=== PATIENT | female | born 1960 | race Caucasian/White ===

== ENCOUNTER → 2016-09-25 | Outpatient (CLI) | payer BC ==
--- NOTE | 2016-09-25 08:38 | WOMENS IMAGING REPORT ---
EXAM DESCRIPTION: LEFT SCREENING MAMMO W/CAD COMPLETED DATE/TIME: 09/25/2016 7:58 am REASON FOR STUDY: SCREENING MAMMO Z12.32; RIGHT UPPER QUADRANT PAIN Z12.31 ENCNTR SCREEN MAMMOGRAM FOR MALIGNANT NEOPLASM OF FISH COMPARISON: Multiple since 2008 TECHNIQUE: Standard craniocaudal and mediolateral oblique views of the left breast recorded using di gital acquisition. Post right mastectomy in 1993 LIMITATIONS: None. FINDINGS: BREAST: Left Findings present which are benign by mammographic criteria. No suspicious masses, calcifications or a rchitectural distortion. Pertinent benign findings: Benign breast parenchymal calcifications Read with the assistance of CAD. .[facility] - R2 Cenova Version 1.3 .[facility] Imaging - R2 Cenova Version 1.3 .[facility] Imaging - R2 Cenova Version 2.4 .[facility] - R2 Cenova Version 2.4 .[facility] - R2 Finishing Machine Operator Automatic Version 9.2 Benign mammographic findings may include one or more of the following: Smooth masses, popcorn/rim/co arse calcifications, asymmetries, post-procedure changes, and lesions with long-standing stability. IMPRESSION: NORMAL MAMMOGRAM. BIRADS 2. BREAST DENSITY: b. There are scattered areas of fibroglandular density. BIRAD: 2 BENIGN FINDING(S) RECOMMENDATION: RECOMMENDATION: ROUTINE SCREENING. Please consider left breast screening tomosynthesis in September 2017 COMMENT: The patient has been notified of the results by letter per SA requirements. Additional no tification policies are in place for contacting patient with suspicious or incomplete findings. Quality ID #[id number]: The [employer] recommends an annual screening mammogram for women aged 40 years or over. This facility utilizes a reminder system to ensure that all patients receive reminder letters, and/or direct phone calls for appointments. This includes reminders for routine scr eening mammograms, diagnostic mammograms, or other Breast Imaging Interventions when appropriate. Th is patient will be placed in the appropriate reminder system. The [employer] (ACR) has developed recommendations for screening MRI of the breast s in certain patient populations, to be used in conjunction with mammography. Breast MRI surveillance may be appropriate for women with more than 20% lifetime risk of developing breast cancer as determi niles by genetic testing, significant family history of the disease, or history of mantle radiation for Hodgkins Disease. ACR Practice Guidelines 2008. TECHNICAL DOCUMENTATION: FINDING NUMBER: (1) ASSESSMENT: (1) JOB ID: [id number] [facility] [employer]- All Rights Reserved
--- NOTE | 2016-09-25 09:45 | WOMENS IMAGING REPORT ---
EXAM DESCRIPTION: U/S ABDOMEN LIMITED COMPLETED DATE/TIME: 09/25/2016 8:20 am REASON FOR STUDY: SCREENING MAMMO Z12.32; RIGHT UPPER QUADRANT PAIN Z12.31 ENCNTR SCREEN MAMMOGRAM FOR MALIGNANT NEOPLASM OF FISH COMPARISON: None. TECHNIQUE: Dynamic and static grayscale images acquired of the abdomen and recorded on PACS. Additio nal selected color Doppler and spectral images recorded. LIMITATIONS: None. FINDINGS: PANCREAS: No masses. Visualized pancreatic duct normal caliber. LIVER: No masses. Echotexture normal. LIVER VASCULATURE: Normal directional flow of the main portal vein and hepatic veins. GALLBLADDER: Multiple small polyps. No definite stones. No evidence cholecystitis. ULTRASOUND-DETECTED OVIEDO'S SIGN: Negative. INTRAHEPATIC DUCTS AND COMMON DUCT: CBD and intrahepatic ducts normal caliber. No filling defects. INFERIOR VENA CAVA: Normal flow. AORTA: No aneurysm. RIGHT KIDNEY: Normal size. Normal echogenicity. No solid or suspicious masses. No hydronephrosis. No calcifications. PERITONEAL AND RIGHT PLEURAL SPACE: No ascites or effusions. OTHER: No other significant findings. IMPRESSION: Multiple small gallbladder polyps. TECHNICAL DOCUMENTATION: JOB ID: [id number] [employer]- All Rights Reserved
== END ==
LOC: WI 07:17
PROVIDERS: ATTEND Advanced Practice Midwife
DX: Z12.31 Encounter for screening mammogram for malignant neoplasm of breast (principal); R10.11 Right upper quadrant pain
CPT/HCPCS: 76705; G0202

== ENCOUNTER 2016-11-07 10:48 | Day surgery (SDC) | payer BC ==
[2016-10-26 11:27] LABS: HEMATOCRIT 44.1 % (36.0-47.0); HEMOGLOBIN 15.2 g/dL (12.0-15.5); HGB HCT DIFFERENCE 1.5; MEAN CORPUSCULAR HGB CONC 34.5 g/dL (32.0-36.0); MEAN CORPUSCULAR VOLUME 87 fl (80-97); RED BLOOD COUNT 5.07 10^6/uL (3.72-5.28); RED CELL DISTRIBUTION WIDTH 13.4 % (11.5-14.0)
[2016-10-26 11:45] LABS: ALANINE AMINOTRANSFERASE 24 U/L (9-52); ALBUMIN 4.4 g/dL (3.5-5.0); ALKALINE PHOSPHATASE 65 U/L (38-126); ANION GAP 11 (5-19); ASPARTATE AMINO TRANSFERASE 19 U/L (14-36); BILIRUBIN,DIRECT 0.3 mg/dL (0.0-0.4); BILIRUBIN,TOTAL 0.5 mg/dL (0.2-1.3); BLOOD UREA NITROGEN 21 mg/dL (7-20); CALCIUM 9.7 mg/dL (8.4-10.2); CARBON DIOXIDE 25 mmol/L (22-30); CHLORIDE 106 mmol/L (98-107); CREATININE RESULT 0.79 mg/dL (0.52-1.25); GLUCOSE 143 mg/dL (75-110); POTASSIUM 4.4 mmol/L (3.6-5.0); SODIUM 141.9 mmol/L (137-145); TOTAL PROTEIN 6.7 g/dL (6.3-8.2)
--- NOTE | 2016-10-26 20:14 | EKG REPORT ---
SEVERITY:- ABNORMAL ECG - SINUS RHYTHM FIRST DEGREE AV BLOCK : Confirmed by: Shelly Larios 26-Oct-2016 20:14:05
[~2016-11-07 10:48] MED LIST: ACETAMINOPHEN 325 MG TABLET PO PRN; BUPIVACAINE HCL 0.25 % INJ/PF (2.5 MG/1 ML) 30 ML VIAL ONE; CEFAZOLIN 1 GM/D5W RTU 1 GM/50 ML RTUPB IV PRN; DEXAMETHASONE SOD PHOSPHATE INJ 4 MG/1 ML VIAL ONE; GLYCOPYRROLATE INJ 0.4 MG/2 ML VIAL ONE; KETOROLAC TROMETHAMINE 60 MG/2 ML SDV ONE; LACTATED RINGERS 1000 ML IV PRN; LIDOCAINE 2% INJ-PF (20 MG/ML) 10 ML AMPUL ONE; NEOSTIGMINE METHYLSULFATE 10 MG/10 ML VIAL ONE; ONDANSETRON HCL INJ/PF 4 MG/2 ML SDV ONE; ROCURONIUM BROMIDE INJ 50 MG/5 ML VIAL IV ONE; SUCCINYLCHOLINE CHLORIDE INJ 200 MG/10 ML VIAL ONE
[2016-11-07] MEDS ORDERED: MIDAZOLAM 2 MG/2 ML INJ ONE ×2 (11:55→13:30)
[2016-11-07] MEDS ORDERED: ALBUTEROL SULFATE 0.083% NEB 2.5 MG/3 ML AMPUL NEB ONE (11:59)
[2016-11-07] MEDS ORDERED: RINGERS SOLUTION,LACTATED 1,000 ML IV ONE (12:15)
[2016-11-07] MEDS ORDERED: FENTANYL CITRATE INJ/PF 100 MCG/2 ML AMPUL ONE (13:29)
[2016-11-07] MEDS ORDERED: ACETAMINOPHEN 100 ML IV ONE (13:30)
[2016-11-07] MEDS ORDERED: PROPOFOL INJ 200 MG/20 ML VIAL IV ONE (13:30)
[2016-11-07] MEDS ORDERED: DIPHENHYDRAMINE HCL 50 MG/ML VIAL IV PRN (14:06)
[2016-11-07] MEDS ORDERED: MEPERIDINE HCL/PF INJ 25 MG/1 ML DISP.SYRIN IV PRN (14:06)
[2016-11-07] MEDS ORDERED: FENTANYL CITRATE INJ/PF 100 MCG/2 ML AMPUL IV PRN ×3 (14:06)
[2016-11-07] MEDS ORDERED: PROMETHAZINE HCL INJ 25 MG/1 ML VIAL IV PRN ×2 (14:06)
--- NOTE | 2016-11-07 15:33 | Operative Report ---
Operative Report DATE OF SURGERY: 11/07/16 PREOPERATIVE DIAGNOSIS: Umbilical hernia, biliary colic. POSTOPERATIVE DIAGNOSIS: Umbilical hernia, biliary colic. OPERATION: Laparoscopic cholecystectomy, open umbilical hernia repair SURGEON: BRYAN BECKWITH ANESTHESIA: GA TISSUE REMOVED OR ALTERED: None COMPLICATIONS: None ESTIMATED BLOOD LOSS: Minimal INTRAOPERATIVE FINDINGS: Normal-appearing bilateral ovaries. 1.5 cm umbilical hernia fascial defect. PROCEDURE: Informed consent was obtained. Patient was brought to the operating room placed operating table in supine position. After satisfactory induction of general anesthesia, patient's abdomen was prepped and draped in usual sterile fashion. A semicircular infraumbilical incision was made dissection revealed a umbilical hernia measuring about 1.5 cm in size. The bellybutton was dissected away from the hernia sac and the hernia sac was opened. Jay trocar was inserted via this defect. Pneumoperitoneum produced good patient toleration. 5 mm trocar was placed in the subxiphoid location.Two 5 mm trochars were placed in the right subcostal location. Laparoscopic view of bilateral ovaries were obtained and both of the ovaries appear normal. The liver appeared normal. The gallbladder appeared normal from the outside. The gallbladder was grasped and retracted cephalad over the dome of the liver. The infundibulum of the gallbladder was grasped retracted laterally and inferiorly thus exposing calot' s triangle. During the dissection there was bleeding of a small vessel at Calot's triangle. This vessel was isolated and clipped with good hemostasis. A fourth 5 mm trocar was placed during this portion of the procedure at the mid upper abdomen for the exposure. The cystic duct gallbladder junction was clearly identified and the cystic duct was clipped and divided. Cystic artery was likewise taken. The gallbladder was taken off the gallbladder bed using the hook electrocautery technique. The gallbladder was removed with an Endobag through the Jay trocar site fascial defect. Operative field was irrigated and irrigant aspirated out. Irrigation fluid was perfectly clear at the end of the case. Hemostasis appeared excellent. All trochars were removed under the direct vision a laparoscope to ensure hemostasis. The umbilical hernia was repaired using interrupted Ethibond sutures oriented in the transverse direction. The belly button was tacked back to the underlying fascia using interrupted Vicryl suture. All skin incisions were closed with subcuticular interrupted Monocryl sutures. Marcaine was injected at the port sites. Patient tolerated procedure well no apparent complications and was taken to the recovery area in stable condition.
[2016-11-07] MEDS ORDERED: RINGERS SOLUTION,LACTATED 1,000 ML IV PRN (15:35)
[2016-11-07] MEDS ORDERED: ONDANSETRON HCL INJ/PF 4 MG/2 ML SDV IV PRN (15:35)
[2016-11-07] MEDS ORDERED: OXYCODONE-ACETAMINOPHEN 5-325 MG TABLET PO PRN (15:35)
--- NOTE | 2016-11-07 15:35 | PDOC DISCHARGE SUMMARY ---
Discharge Summary (SDC) - Discharge Final Diagnosis: Umbilical hernia. Biliary colic. Date of Surgery: 11/07/16 Discharge Date: 11/07/16 Condition: Good Treatment or Instructions: Underwent umbilical hernia repair and laparoscopic cholecystectomy. May discharge patient home when met discharge criteria. Stay active but avoid strenuous activity. May shower tomorrow night. Keep Steri-Strips on. Follow- up with me in 2 weeks. Prescriptions: Oxycodone HCl/Acetaminophen [Percocet 5-325 mg Tablet] 1 tab PO ASDIR PRN #25 tablet PRN Reason: Discharge Diet: As Tolerated Discharge Activity: Activity As Tolerated - Stay active but avoid strenuous activity. Report the Following to Your Physician Immediately: Yellow Skin, Fever over 101 Degrees, Unusual Bleeding, Redness, Drainage-Foul Smelling
[2016-11-07 18:46] VITALS: BP 151/86
== END 2016-11-07 18:20 | disposition home or self-care (01) ==
LOC: OROUT 10:48
PROVIDERS: ATTEND Surgery
PROC: 0WQF0ZZ Repair Abdominal Wall, Open Approach (ICD-10-PCS; 2016-11-07)
PROC: 0FT44ZZ Resection of Gallbladder, Percutaneous Endoscopic Approach (ICD-10-PCS; principal; 2016-11-07 13:00)
DX: K80.10 Calculus of gallbladder with chronic cholecystitis without obstruction (principal); K42.9 Umbilical hernia without obstruction or gangrene; F17.210 Nicotine dependence, cigarettes, uncomplicated; Z85.3 Personal history of malignant neoplasm of breast
CPT/HCPCS: 93005; 36415; 85027; 80053; 88304 ×2; 93010; 47562; 49585; J2250; J0690; J3490 ×2; J1100; J1885; J3010; J0330; J2405; J2704; J0131; 790

== ENCOUNTER → 2017-11-21 | Outpatient (CLI) | payer BC ==
--- NOTE | 2017-11-21 17:38 | WOMENS IMAGING REPORT ---
EXAM DESCRIPTION: 3D SCREENING MAMMO LEFT COMPLETED DATE/TIME: 11/21/2017 11:09 am REASON FOR STUDY: SCREENING MAMMO Z12.31 ENCNTR SCREEN MAMMOGRAM FOR MALIGNANT NEOPLASM OF FISH COMPARISON: Multiple since 2008 TECHNIQUE: Standard craniocaudal and mediolateral oblique views of the breast recorded using digital acquisition and breast tomosynthesis. LIMITATIONS: None. FINDINGS: BREAST: Left No masses, calcifications or architectural distortion. No areas of suspicion. Read with the assistance of CAD. .[facility] - R2 Cenova Version 1.3 .[facility] Imaging - R2 Cenova Version 1.3 .[facility] Imaging - R2 Cenova Version 2.4 .[facility] - R2 Cenova Version 2.4 .[facility] - R2 Distilling Department Supervisor Version 9.2 IMPRESSION: NORMAL MAMMOGRAM. BIRADS 1. BREAST DENSITY: b. There are scattered areas of fibroglandular density. BIRAD: 1 Negative RECOMMENDATION: RECOMMENDATION: ROUTINE SCREENING. Please continue left breast screening tomosynthesis in November 2018 COMMENT: The patient has been notified of the results by letter per SA requirements. Additional no tification policies are in place for contacting patient with suspicious or incomplete findings. Quality ID #[id number]: The [employer] recommends an annual screening mammogram for women aged 40 years or over. This facility utilizes a reminder system to ensure that all patients receive reminder letters, and/or direct phone calls for appointments. This includes reminders for routine scr eening mammograms, diagnostic mammograms, or other Breast Imaging Interventions when appropriate. Th is patient will be placed in the appropriate reminder system. The [employer] (ACR) has developed recommendations for screening MRI of the breast s in certain patient populations, to be used in conjunction with mammography. Breast MRI surveillance may be appropriate for women with more than 20% lifetime risk of developing breast cancer as determi niles by genetic testing, significant family history of the disease, or history of mantle radiation for Hodgkins Disease. ACR Practice Guidelines 2008. DBT Technology DBT is a type of tomographic mammography. With conventional mammography, overlapping breast tissue ma y make lesions difficult to detect, even with good compression. DBT uses an x-ray tube that rotates a round the breast, taking images at different angles. These images are then combined to create thin sl ices of the breast that the radiologist can view as a 3D reconstruction. The enymotion unit can perform full-field digital mammograms (2D imaging); or DBT (3D imaging); or both, in a combination mode that quickly performs both the mammogram and the tomosynthesis scan while the breast is still compressed. PQRS 6045F: Fluoroscopic imaging is not utilized for breast tomosynthesis. TECHNICAL DOCUMENTATION: FINDING NUMBER: (1) ASSESSMENT: (1) JOB ID: [id number] [employer]- All Rights Reserved Reading location - IP/workstation name: [email or web address]
== END ==
LOC: WI 10:11
PROVIDERS: ATTEND Advanced Practice Midwife
DX: Z12.31 Encounter for screening mammogram for malignant neoplasm of breast (principal); Z85.3 Personal history of malignant neoplasm of breast; Z80.3 Family history of malignant neoplasm of breast

== ENCOUNTER → 2018-12-05 | Outpatient (CLI) | payer BC ==
--- NOTE | 2018-12-05 09:43 | WOMENS IMAGING REPORT ---
EXAM DESCRIPTION: LEFT SCREENING MAMMO W/CAD COMPLETED DATE/TIME: 12/05/2018 8:14 am REASON FOR STUDY: Z12.31 SCREENING MAMMO Z12.31 ENCNTR SCREEN MAMMOGRAM FOR MALIGNANT NEOPLASM OF B RE Z85.3 PERSONAL HISTORY OF MALIGNANT NEOPLASM OF BREAST COMPARISON: [id number] EXAM PARAMETERS: Standard craniocaudal and mediolateral oblique views of the breast recorded using d igital acquisition. Read with the assistance of CAD. .[facility] - [employer] Version 9.2 LIMITATIONS: None. FINDINGS: BREAST LATERALITY: left No suspicious masses, suspicious calcifications or architectural distortion. No areas of concern. IMPRESSION: NORMAL MAMMOGRAM. BIRADS 1. BREAST DENSITY: b. There are scattered areas of fibroglandular density. BIRAD: ASSESSMENT: 1 NEGATIVE RECOMMENDATION: RECOMMENDATION: ROUTINE SCREENING. COMMENT: The patient has been notified of the results by letter per SA requirements. Additional no tification policies are in place for contacting patient with suspicious or incomplete findings. Quality ID #[id number]: [employer] recommends an annual screening mammogram for women aged 40 years or over. This facility utilizes a reminder system to ensure that all patients receive reminder letters, and/or direct phone calls for appointments. This includes reminders for routine scr eening mammograms, diagnostic mammograms, or other Breast Imaging Interventions when appropriate. Th is patient will be placed in the appropriate reminder system. TECHNICAL DOCUMENTATION: FINDING NUMBER: (1) ASSESSMENT: (1) JOB ID: [id number] [employer]- All Rights Reserved Reading location - IP/workstation name: [email or web address]
== END ==
LOC: WI 07:25
PROVIDERS: ATTEND Advanced Practice Midwife
DX: Z12.31 Encounter for screening mammogram for malignant neoplasm of breast (principal); Z85.3 Personal history of malignant neoplasm of breast; Z90.11 Acquired absence of right breast and nipple

== ENCOUNTER → 2019-12-24 | Outpatient (CLI) | payer BC ==
--- NOTE | 2019-12-24 18:00 | EKG REPORT ---
SEVERITY:- ABNORMAL ECG - SINUS RHYTHM NONSPECIFIC T ABNORMALITIES, ANT-LAT LEADS : Confirmed by: Shelly Larios 24-Dec-2019 18:00:30
--- OUTSIDE RECORDS SUMMARY | 2019-12-25 18:25 | XMS REPORT ---
:1960 [facility] [address] [address] Care Team Providers Name Role Phone Noelle ZIEGLER Attending Clinician Unavailable Grisel NOBLE Attending Clinician Unavailable Ada SELLERS Attending Clinician Unavailable Sharon ANDRADE Attending Clinician Unavailable Neo SANTOS Attending Clinician Unavailable Allergies, Adverse Reactions, Alerts This patient has no known allergies or adverse reactions. Medications Ordered Filled Start Stop Current Ordering Indication Dosage Frequency Signature Comments Components Medication Medication Date Date Medication? Clinician (SIG) Name Name Take 1 2019- 2020- No 1 BID Take 1 Capsule 0-16 10-21 Capsule orally 00:00: 00:00 orally twice per 00 :00 twice per day for 5 day for 5 days days Take 1 2020-1 2020- No 1 BID Take 1 Capsule 0-16 10-21 Capsule orally 00:00: 00:00 orally twice per 00 :00 twice per day for 5 day for 5 days days Take 1 2020-1 2020- No 1 QD Take 1 Tablet 0-16 10-18 Tablet orally once 00:00: 00:00 orally per day for 00 :00 once per 2 days day for 2 days Take 1 2020-1 2020- No 1 QD Take 1 Tablet 0-16 10-18 Tablet orally once 00:00: 00:00 orally per day for 00 :00 once per 2 days day for 2 days 1 Capsule 2020-0 2020- No 1 BID 1 Capsule orally 3- 03-13 orally twice per 00:00: 00:00 twice per Day for 10 00 :00 Day for 10 Days Days 1 Capsule 2020-0 2020- No 1 TID 1 Capsule orally up 3-04 14-13 orally up to 2 00:00: 00:00 to 2 capsules 3 00 :00 capsules 3 times per times per Day for 10 Day for 10 Days Days 1 Capsule 2020-0 2020- No 1 BID 1 Capsule orally 3-03 03-13 orally twice per 00:00: 00:00 twice per Day for 10 00 :00 Day for 10 Days Days Take 10 2019- No 10 Take 10 Milliliters 3-03 03-08 Milliliter orally once 00:00: 00:00 s orally per Day at 00 :00 once per night, will Day at cause night, drowsiness will cause for 5 Days drowsiness for 5 Days Take 10 2019- No 10 QD Take 10 Milliliters 3-03 03-08 Milliliter orally once 00:00: 00:00 s orally per Day at 00 :00 once per night, will Day at cause night, drowsiness will cause for 5 Days drowsiness for 5 Days 1 Capsule, 2018-02- No 1 BID 1 Capsule, 2 times per 0-04 -11 2 times Day for 7 00:00: 00:00 per Day Days 00 :00 for 7 Days 1 Tablet, 1 2018-02- No 1 QD 1 Tablet, time per 0- 10-06 1 time per Day for 2 00:00: 00:00 Day for 2 Days Repeat 00 :00 Days in 5 days Repeat in 5 days 1 Tablet, 2 2017-02- No 1 BID 1 Tablet, times per 2-26 01-05 2 times Day for 10 21:09: 00:00 per Day Days for 31 :00 for 10 urinary Days for tract urinary infection tract infection 1 Tablet, 2 2017-02- No 1 BID 1 Tablet, times per 2-20 12-23 2 times Day for 3 00:00: 00:00 per Day Days 00 :00 for 3 Days 1 Tablet, 2 2017-02- No 1 BID 1 Tablet, times per 1-12 11-22 2 times Day for 10 08:51: 00:00 per Day Days 07 :00 for 10 Days 1 Tablet, 2 2010- No 1 BID 1 Tablet, times per 2- 02-12 2 times Day for 10 00:00: 00:00 per Day Days FOR 00 :00 for 10 BLADDER Days FOR INFECTION BLADDER INFECTION for 10 2010- No for 10 Days USE 2-02 02-12 Days USE DIRECTED 00:00: 00:00 FOR YEAST 00 :00 DIRECTED INFECTION FOR YEAST INFECTION 1 Tablet, 1 2009- No 1 QD 1 Tablet, time per 6- 07-04 1 time per Day for 30 00:00: 00:00 Day for 30 Days for 00 :00 Days for weight loss weight loss 1 Tablet, 1 1 QD 1 Tablet, time per 06-15 1 time per Day for 1 00:00: 00:00 Day for 1 Month for 00 :00 Month for weight loss weight loss 1 Tablet, 1 2009- No 1 QD 1 Tablet, time per 06-15 1 time per Day for 1 00:00: 00:00 Day for 1 Month for 00 :00 Month for weight loss weight loss 2 Tablets, Yes 2 QD 2 Tablets, 1 time per 1 time per Day otc Day otc Problems Condition Condition Condition Status Onset Resolution Last Treatin g Comments Name Details Category Date Date Treatment Clinician Date Glucosuria Glucosuria Disease active ([id number] ([id number] 2) 2) Body mass Body mass Disease active index index 30.0-30.9 30.0-30.9 adult adult ([id number] ([id number] 000) 000) Procedures Procedure Date / Time Performed Performing Clinician Devic e Non-smoker 2019-10-09 00:00:00 Tobacco usage screening ([id number]) 2019-10-09 00:00:00 Handling and/or conveyance of 2018-11-15 00:00:00 specimen for transfer from the office to a laboratory BMI is documented above normal 2018-01-31 00:00:00 parameters and a follow-up plan is documented Results Test Description Test Time Test Comments Text Results Atomic Results Result Comments Urine Dipstick w/o Micro (Automated)"/> 2019-11-28 00:00:00 Test Item Value Reference Range Comments Glucose (test code = 5792-7) negative Neg - 2+ Bilirubin (test code = 5770.3) negative Neg - 3+ Ketone (test code = 5797-6) negative Neg - Large SP/G (test code = 2965-2) >=1.030 1.000-1.030 Blood (test code = 20516-7) moderate Neg - 3+ pH (test code = 5803-2) 6.0 5.0-8.5 Protein (test code = 5804-0) negative Neg - 4+ Urobilinogen (test code = 91719-6) 0.2 0.2-8 Nitrite (test code = 5802-4) negative Negative or Positiv e Leukocytes (test code = 5799-2) trace Neg - 3+ Turbidity (test code = 22430-0) clear Color (test code = 87769-3) yellow Urine Culture, Routine"/>2019-11-28 00:00:00 Test Item Value Reference Range Comments Result 1 (test code = 630-4) Comment INFLUENZA, A OR B, EACH"/>2019-04-17 00:00:00 Test Item Value Reference Range Comments INFLUENZA, A OR B, EACH (test code = INFLUENZA, A negative NEGATIVE OR B, EACH) Urine Dipstick w/o Micro (Automated)"/>2018-11-15 00:00:00 Test Item Value Reference Range Comments Glucose (test code = 5792-7) 250 mg/dL Neg - 2+ Bilirubin (test code = 5770.3) small Neg - 3+ Ketone (test code = 5797-6) negative Neg - Large SP/G (test code = 2965-2) >=1.030 1.000-1.030 Blood (test code = 86901-8) trace-lysed Neg - 3+ pH (test code = 5803-2) 5.0 5.0-8.5 Protein (test code = 5804-0) 100 Neg - 4+ Urobilinogen (test code = 16540-6) 4.0 0.2-8 Nitrite (test code = 5802-4) positive Negative or Positiv e Leukocytes (test code = 5799-2) large Neg - 3+ Turbidity (test code = 12222-1) cloudy Color (test code = 91251-2) dk.orange Glucose"/>2018-11-15 00:00:00 Test Item Value Reference Range Comments Glucose blood test (test code = 62070-9) 132 60-115 Urine Culture, Routine"/>2018-11-15 00:00:00 Test Item Value Reference Range Comments Result 1 (test code = 630-4) Comment Hgb A1c with eAG Estimation"/>2018-03-27 00:00:00 Test Item Value Reference Range Comments Hemoglobin A1c (test code = 4548-4) 6.2 % 4.8-5.6 Estim. Avg Glu (eAG) (test code = 77353-0) 131 mg/dL Urine Dipstick w/o Micro (Automated)"/>2018-01-31 00:00:00 Test Item Value Reference Range Comments Glucose (test code = 5792-7) negative Neg - 2+ Bilirubin (test code = 5770.3) negative Neg - 3+ Ketone (test code = 5797-6) negative Neg - Large SP/G (test code = 2965-2) 1.010 1.000-1.030 Blood (test code = 73771-3) trace-intact Neg - 3+ pH (test code = 5803-2) 6.5 5.0-8.5 Protein (test code = 5804-0) 30 Neg - 4+ Urobilinogen (test code = 52772-7) 0.2 0.2-8 Nitrite (test code = 5802-4) positive Negative or Positiv e Leukocytes (test code = 5799-2) moderate Neg - 3+ Turbidity (test code = 16269-6) cloudy Color (test code = 05190-8) lt yellow Hemoglobin A1c"/>2017-12-24 00:00:00 Test Item Value Reference Range Comments Hemoglobin A1c (test code = 4548-4) 6.2 % 4.8-5.6 In-House: Urinalysis w/o microscopy"/>2010-03-16 00:00:00 Test Item Value Reference Range Comments Glucose (test code = Glucose) neg Bilirubin (test code = Bilirubin) neg Ketones (test code = Ketones) neg SP/G (test code = SP/G) 1.010 1.000-1.030 Blood (test code = Blood) large pH (test code = pH) 6.0 5.0-8.5 Protein (test code = Protein) 30 Urobilinogen (test code = Urobilinogen) 1.0 0.2-8 Nitrates (test code = Nitrates) neg Leukocytes (test code = Leukocytes) mod Turbidity (test code = Turbidity) clr Color (test code = Color) lt. yellow UA/M w/rflx Culture, Routine"/>2010-03-16 00:00:00 Test Item Value Reference Range Comments Specific [place] (test code = Specific [place]) 1.014 1.005-1.030 pH (test code = pH) 6.0 5.0-7.5 Urine-Color (test code = Urine-Color) Yellow Yellow Appearance (test code = Appearance) Cloudy Clear WBC Esterase (test code = WBC Esterase) 2+ Negative Protein (test code = Protein) Negative Negative/Trace Glucose (test code = Glucose) Negative Negative Glucose Reflex (test code = Glucose Reflex) Ketones (test code = Ketones) Negative Negative Occult Blood (test code = Occult Blood) 3+ Negative Bilirubin (test code = Bilirubin) Negative Negative Urobilinogen,Semi-Qn (test code = 1.0 mg/dL 0.0-1.9 Urobilinogen,Semi-Qn) Nitrite, Urine (test code = Nitrite, Urine) Negative Nega tive Microscopic Examination (test code = Microscopic See below: Examination) Urinalysis Reflex (test code = Urinalysis Reflex) Comment Microscopic Examination"/>2010-03-16 00:00:00 Test Item Value Reference Range Comments WBC (test code = WBC) 11-30 0-5 RBC (test code = RBC) 11-30 0-3 Epithelial Cells (non renal) (test code = Epithelial >10 0-10 Cells (non renal)) Epithelial Cells (renal) (test code = Epithelial Cells (renal)) Casts (test code = Casts) Cast Type (test code = Cast Type) Crystals (test code = Crystals) Crystal Type (test code = Crystal Type) Mucus Threads (test code = Mucus Threads) Present Not Es tab. Bacteria (test code = Bacteria) Few None seen/Few Yeast (test code = Yeast) Trichomonas (test code = Trichomonas) Comment (test code = Comment) Urine Culture, Routine"/>2010-03-16 00:00:00 Test Item Value Reference Range Comments Urine Culture, Routine (test code = Urine Final report Culture, Routine) Result 1 (test code = Result 1) Comment Assessments Condition Name Status Diagnosis Date Treating Clinici an Sinusitis ([id number]) Unknown 2009-05-26 15:03:00 Blood glucose abnormal ([id number]) Unknown 2009-05-26 15:03:00 Acute lower urinary tract infection Unknown 2009-05-26 1 5:03:00 ([id number]) Prediabetes (NBO3240461) Unknown 2009-05-26 15:03:00 UTI - Urinary tract infection Unknown 2009-05-26 15:03:0 0 ([id number]) Glucosuria ([id number]) Unknown 2009-05-26 15:03:00 Allergic rhinitis (CFY80701070) Unknown 2009-05-26 15:03 :00 Body mass index 30.0-30.9 adult Unknown 2009-05-26 15:03 :00 ([id number]) Glucosuria ([id number]) Unknown 2009-05-26 15:03:00 Fever ([id number]) Unknown 2009-05-26 15:03:00 TOBACCO ABUSE COUNSELING Unknown 2009-05-26 15:03:00 ([id number]) Cough ([id number]) Unknown 2009-05-26 15:03:00 TOBACCO ABUSE COUNSELING Unknown 2009-05-26 15:03:00 ([id number]) Disease caused by 2019 novel Unknown 2009-05-26 15:03:00 coronavirus ([id number]) Urinary frequency ([id number]) Unknown 2009-05-26 15:0 3:00 Dysuria ([id number]) Unknown 2009-05-26 15:03:00 Hematuria ([id number]) Unknown 2009-05-26 15:03:00 Urinary tract infection ([id number]) Unknown 2009-05-26 15:03:00 Dietary surveillance and counseling Unknown 2009-05-26 1 5:03:00 ([id number]) Urinary frequency ([id number]) Unknown 2009-05-26 15:0 3:00 Elevated blood pressure reading Unknown 2009-05-26 15:03 :00 without diagnosis of hypertension ([id number]) Dysuria ([id number]) Unknown 2009-05-26 15:03:00 Urinary tract infection ([id number]) Unknown 2009-05-26 15:03:00 UNSPECIFIED ABNORMAL FINDINGS IN URINE Unknown 2009-05-13 4 15:03:00 ([id number]) Smoker ([id number]) Unknown 2009-05-26 15:03:00 Encounters Start End Encounter Admission Attending Care Care Encounter Date/Time Date/Time Type Type Clinicians Facility Department ID 2019-11-28 2019-12-03 Office/Outp Noelle [facility] [id number] 16:20:00 21:48:12 t [facility] 2019-11-28 2019-11-28 Office/Outp Noelle [facility] [id number] 16:20:00 16:34:56 t [facility] Visit,[facility] 2019-10-09 2019-10-10 Office/Outp Noelle [facility] [id number] 09:10:00 13:02:13 t [facility]aily [facility] Visit,[facility] 2019-04-15 2019-04-17 Office/Outp Grisel [facility] [id number] 15:30:00 11:25:16 t Givens Medical Visit,Priyank [facility] III 2019-04-17 2019-04-17 Office/Outp Grisel [facility] [id number] 10:01:00 11:22:07 t Givens Medical Visit,Priyank [facility] III 2018-12-06 2018-12-06 Office/Outp Grisel [facility] [id number] 15:20:00 14:51:41 t Givens Medical Visit,Priyank [facility]uez [facility] III 2018-11-15 2018-11-15 Office/Outp Grisel [facility] [id number] 15:40:00 19:15:48 t Givens Medical Visit,Priyank Rod[facility]guez [facility] III 2018-03-27 2018-03-27 Office/Outp Ada [facility] [id number] 15:20:00 16:58:37 t Celena Medical Visit,Priyank Rod[facility]guez [facility] III 2018-01-31 2018-01-31 Office/Outp Sharon [facility] [id number] 15:00:00 15:13:23 t Tae Medical Visit,AnneL [facility] III 2017-12-24 2017-12-24 Office/Outp Ada [facility] [id number] 08:51:00 09:52:25 t Celena Medical Visit,Priyank Rod[facility]guez [facility] III 2010-03-16 2010-03-16 Office/Outp Neo [facility] [id number] 11:37:00 11:59:38 t Worriax Medical Visit,AnneL [facility] III 2009-07-27 Office/Outp Neo [facility] [id number] 09:37:59 08:15:56 t Worriax [facility] Visit,[facility] III 2009-06-15 2009-06-15 Office/Outp Neo [facility] [id number] 11:09:00 11:26:19 t Worriax Medical Visit,AnneL [facility] III 2009-05-26 2009-06-03 Office/Outp Neo [facility] [id number] 11:03:00 00:29:59 t Worriax Medical Visit,NewPriyank [facility] III 2009-05-28 2009-05-28 [id number] [facility] [place] [id number] 09:27:00 09:30:19 Health Center Payers Payer Name Policy Type Policy Number Effective Date Expiration D ate BCBS [place](BSNCA) [51] LD Social History Social Habit Start Date Stop Date Comments Alcohol use Caffeine use Exercise Fat Intake Salt Intake Sex Assigned At 2019-12-04 00:00:00 2019-12-04 00:00:00 Smoking Status Start Date Stop Date Smoking status: Current every day smoker ([id number]) Vital Signs Vital Name Observation Time Observation Value Comments Height 2019-11-28 16:02:00 162.6 cm Weight 2019-11-28 16:02:00 79.9 kg BMI 2019-11-28 16:02:00 30.25 kg/m2 Systolic blood pressure 2019-11-28 16:02:00 128 mm[Hg] Diastolic blood pressure 2019-11-28 16:02:00 68 mm[Hg] Body temperature 2019-11-28 16:02:00 36.6 Yaneth Respiratory rate 2019-11-28 16:02:00 18 /min Heart rate 2019-11-28 16:02:00 70 /min Oxygen saturation in Capillary blood 2019-11-28 16:02:00 96 % by Oximetry Oxygen saturation in Capillary blood 2019-10-09 09:11:00 99 % by Oximetry Height 2019-10-09 09:11:00 162.6 cm Weight 2019-10-09 09:11:00 81.3 kg BMI 2019-10-09 09:11:00 30.78 kg/m2 Systolic blood pressure 2019-10-09 09:11:00 155 mm[Hg] Diastolic blood pressure 2019-10-09 09:11:00 79 mm[Hg] Body temperature 2019-10-09 09:11:00 36.3 Yaneth Respiratory rate 2019-10-09 09:11:00 18 /min Heart rate 2019-10-09 09:11:00 57 /min Height 2019-04-17 10:08:00 162.6 cm Weight 2019-04-17 10:08:00 80.0 kg BMI 2019-04-17 10:08:00 30.26 kg/m2 Systolic blood pressure 2019-04-17 10:08:00 118 mm[Hg] Diastolic blood pressure 2019-04-17 10:08:00 70 mm[Hg] Body temperature 2019-04-17 10:08:00 38.3 Yaneth Respiratory rate 2019-04-17 10:08:00 18 /min Heart rate 2019-04-17 10:08:00 71 /min Oxygen saturation in Capillary blood 2019-04-17 10:08:00 95 % by Oximetry Height 2019-04-15 15:34:00 162.6 cm Weight 2019-04-15 15:34:00 81.0 kg BMI 2019-04-15 15:34:00 30.64 kg/m2 Systolic blood pressure 2019-04-15 15:34:00 144 mm[Hg] Diastolic blood pressure 2019-04-15 15:34:00 76 mm[Hg] Body temperature 2019-04-15 15:34:00 36.8 Yaneth Respiratory rate 2019-04-15 15:34:00 18 /min Heart rate 2019-04-15 15:34:00 73 /min Oxygen saturation in Capillary blood 2019-04-15 15:34:00 95 % by Oximetry Height 2018-12-06 14:21:00 162.6 cm Weight 2018-12-06 14:21:00 79.8 kg BMI 2018-12-06 14:21:00 30.21 kg/m2 Systolic blood pressure 2018-12-06 14:21:00 120 mm[Hg] Diastolic blood pressure 2018-12-06 14:21:00 70 mm[Hg] Body temperature 2018-12-06 14:21:00 36.3 Yaneth Respiratory rate 2018-12-06 14:21:00 18 /min Heart rate 2018-12-06 14:21:00 57 /min Oxygen saturation in Capillary blood 2018-12-06 14:21:00 96 % by Oximetry Height 2018-11-15 15:41:00 162.6 cm Weight 2018-11-15 15:41:00 79.4 kg BMI 2018-11-15 15:41:00 30.05 kg/m2 Systolic blood pressure 2018-11-15 15:41:00 138 mm[Hg] Diastolic blood pressure 2018-11-15 15:41:00 70 mm[Hg] Body temperature 2018-11-15 15:41:00 36.2 Yaneth Respiratory rate 2018-11-15 15:41:00 18 /min Heart rate 2018-11-15 15:41:00 76 /min Oxygen saturation in Capillary blood 2018-11-15 15:41:00 94 % by Oximetry Height 2018-03-27 15:21:00 162.6 cm Weight 2018-03-27 15:21:00 79.1 kg BMI 2018-03-27 15:21:00 29.93 kg/m2 Systolic blood pressure 2018-03-27 15:21:00 129 mm[Hg] Diastolic blood pressure 2018-03-27 15:21:00 74 mm[Hg] Body temperature 2018-03-27 15:21:00 36.0 Yaneth Respiratory rate 2018-03-27 15:21:00 18 /min Heart rate 2018-03-27 15:21:00 54 /min Oxygen saturation in Capillary blood 2018-03-27 15:21:00 94 % by Oximetry Height 2018-01-31 14:58:00 162.6 cm Weight 2018-01-31 14:58:00 77.6 kg BMI 2018-01-31 14:58:00 29.35 kg/m2 Systolic blood pressure 2018-01-31 14:58:00 120 mm[Hg] Diastolic blood pressure 2018-01-31 14:58:00 70 mm[Hg] Body temperature 2018-01-31 14:58:00 36.6 Yaneth Respiratory rate 2018-01-31 14:58:00 20 /min Heart rate 2018-01-31 14:58:00 64 /min Oxygen saturation in Capillary blood 2018-01-31 14:58:00 97 % by Oximetry Height 2017-12-24 08:51:00 162.6 cm Weight 2017-12-24 08:51:00 79.0 kg BMI 2017-12-24 08:51:00 29.87 kg/m2 Systolic blood pressure 2017-12-24 08:51:00 140 mm[Hg] Diastolic blood pressure 2017-12-24 08:51:00 66 mm[Hg] Body temperature 2017-12-24 08:51:00 36.2 Yaneth Respiratory rate 2017-12-24 08:51:00 18 /min Heart rate 2017-12-24 08:51:00 64 /min Oxygen saturation in Capillary blood 2017-12-24 08:51:00 96 % by Oximetry Weight 2010-03-16 11:40:00 71.2 kg Systolic blood pressure 2010-03-16 11:40:00 114 mm[Hg] Diastolic blood pressure 2010-03-16 11:40:00 69 mm[Hg] Body temperature 2010-03-16 11:40:00 37.4 Yaneth Respiratory rate 2010-03-16 11:40:00 18 /min Heart rate 2010-03-16 11:40:00 88 /min Systolic blood pressure 2009-07-16 09:46:00 119 mm[Hg] Diastolic blood pressure 2009-07-16 09:46:00 82 mm[Hg] Heart rate 2009-07-16 09:46:00 62 /min Weight 2009-07-16 09:12:00 73.0 kg Systolic blood pressure 2009-07-16 09:12:00 140 mm[Hg] Diastolic blood pressure 2009-07-16 09:12:00 90 mm[Hg] Body temperature 2009-07-16 09:12:00 36.7 Yaneth Respiratory rate 2009-07-16 09:12:00 18 /min Heart rate 2009-07-16 09:12:00 73 /min Weight 2009-06-15 10:27:00 75.7 kg Systolic blood pressure 2009-06-15 10:27:00 114 mm[Hg] Diastolic blood pressure 2009-06-15 10:27:00 65 mm[Hg] Body temperature 2009-06-15 10:27:00 36.4 Yaneth Respiratory rate 2009-06-15 10:27:00 18 /min Heart rate 2009-06-15 10:27:00 48 /min Systolic blood pressure 2009-06-04 10:16:00 113 mm[Hg] Diastolic blood pressure 2009-06-04 10:16:00 77 mm[Hg] Heart rate 2009-06-04 10:16:00 63 /min Systolic blood pressure 2009-05-31 10:17:00 132 mm[Hg] Diastolic blood pressure 2009-05-31 10:17:00 78 mm[Hg] Systolic blood pressure 2009-05-28 09:30:00 126 mm[Hg] Diastolic blood pressure 2009-05-28 09:30:00 70 mm[Hg] Height 2009-05-26 10:49:00 162.6 cm Weight 2009-05-26 10:49:00 78.9 kg BMI 2009-05-26 10:49:00 29.87 kg/m2 Systolic blood pressure 2009-05-26 10:49:00 139 mm[Hg] Diastolic blood pressure 2009-05-26 10:49:00 82 mm[Hg] Body temperature 2009-05-26 10:49:00 36.7 Yaneth Respiratory rate 2009-05-26 10:49:00 18 /min Heart rate 2009-05-26 10:49:00 55 /min Hospital Discharge Instructions Patient was given education Blood Sugar, Cipro 250 mg tablet, Blood Sugar, Urinary Tract Infections,obesity, Fever, Cough, High Blood Pressure, Urinary Tract InfectionsDatePatient Tnrihpilp7300-23-21Nnizy Sugar(Patient given patient education material in encounter)https://medlineplus.gov/bloodsugar.ht ml?utm_medium=service&utm_source=hhlbrigzdowd3262-04-55Nhvwf 250 mg tablet(Patient given patienteducation material in encounter)1161-56-24Vqlsn Sugar(Patient given patient education material in enc ounter)https://medlineplus.gov/bloodsugar.html?utm_source=mplusconnect&utm_m bptvb=bdnbhkd7652-51-98Kilyfpy Tract Infections(Patient given patient education material in encounter)https://medlineplus. gov/urinarytractinfections.html?utm_medium=service&utm_source=mvrzbxtiilun15 32-18-57ggnwren(Patient given patient education material in encounter)7238-51-23Szgbm(Patient given patient education material in encounter)https://medlineplus.gov/fever.html?utm_source=mplusconnect&utm_med cec=cmjngui2321-61-76Auybn(Patient given patient education material in encounter)https://medlineplus.gov/cough.htm l?utm_source=mplusconnect&utm_medium=vrlxsyk8732-10-91Klyr Blood Pressure(Patient given patient education material in encounter)https://medlineplus.gov/highbloodpressure.html?utm_source=mplusconnect &utm_medium=tpazkvq7749-97-37Cbyqjee Tract Infections(Patient given patient education material in encounter)https://medlineplus.gov/urinarytractinfections.html?utm_source=mplusco nnect&utm_medium=servicePatient was given education Blood Sugar, Cipro 250 mg tablet, Blood Sugar, Urinary Tract Infections,obesity, Fever, Cough, High Blood Pressure, Urinary Tract InfectionsDatePatient Vhovjmmgm3550-85-52Fpczb Sugar(Patient given patient education material in encounter)https://medlineplus.gov/bloodsugar.ht ml?utm_medium=service&utm_source=bwaxjofoikui7687-87-16Nupbb 250 mg tablet(Patient given patienteducation material in encounter)5236-60-47Cxvly Sugar(Patient given patient education material in enc ounter)https://medlineplus.gov/bloodsugar.html?utm_source=mplusconnect&utm_m geuxt=nfinwbi9623-55-29Sripsbn Tract Infections(Patient given patient education material in encounter)https://medlineplus. gov/urinarytractinfections.html?utm_medium=service&utm_source=gjswnhquneph02 79-93-16zfuhfob(Patient given patient education material in encounter)9927-55-49Mlhax(Patient given patient education material in encounter)https://medlineplus.gov/fever.html?utm_source=mplusconnect&utm_med ceu=aqnqbhx4973-15-46Kplrt(Patient given patient education material in encounter)https://medlineplus.gov/cough.htm l?utm_source=mplusconnect&utm_medium=hnerqyb1731-34-29Fvzw Blood Pressure(Patient given patient education material in encounter)https://medlineplus.gov/highbloodpressure.html?utm_source=mplusconnect &utm_medium=roxbjux1455-21-63Lrczybg Tract Infections(Patient given patient education material in encounter)https://medlineplus.gov/urinarytractinfections.html?utm_source=mplusco nnect&utm_medium=servicePatient was given education Blood Sugar, Cipro 250 mg tablet, Blood Sugar, Urinary Tract Infections,obesity, Fever, Cough, High Blood PressureDatePatient Ttrbreirn7662-66-08Bjhqp Sugar(Patient given patient education material in encounter)https://medlineplus.gov/bloodsugar.html?utm_medium=service& utm_source=vzgvidigukbc1946-72-39Ezrrb 250 mg tablet(Patient given patient education material in encounter)7365-36-86Mgfqh Sugar(Patient given patient education material in encounter)https://medlineplus .gov/bloodsugar.html?utm_source=mplusconnect&utm_medium=fwqxxit6071-81-25Krh nary Tract Infections(Patient given patient education material in encounter)https://medlineplus.gov/urinarytractinfections .html?utm_medium=service&utm_source=wiohbsrinfnw5574-98-71vjdfcqf(Patient given patient education material in encounter)1653-11-17Khsew(Patient given patient education material in encounter)https:// medlineplus.gov/fever.html?utm_source=mplusconnect&utm_medium=vvvelco0327-14 -05Cough(Patient given patient education material in encounter)https://medlineplus.gov/cough.html?utm_source=mplusconnect& amp;utm_medium=ksehxnp0958-44-52Xemz Blood Pressure(Patient given patient education material in encou nter)https://medlineplus.gov/highbloodpressure.html?utm_source=mplusconnect& utm_medium=servicePatient was given instructions RTC if no improvement., Bed rest., Increase PO fluids., continue OTC meds., Take medications as prescribed., Follow up as scheduled, Push fluids., Take medications as prescribed., Will call patient with results., RTC 1 week, Declines flu shot., Declines flu shot., RTC asneeded, Healthy diet, regular exercise, and weight loss discussed., Will call patient with results.,Alternate tylenol/motrin to keep fevers <100., OTC cough med as needed., OTC zyrtec., Push fluids., Take medications as prescribed., RTC as needed, To ER if symptoms persist or worsen., Rest., Altern ate tylenol/motrin to keep fevers <100., OTC cough med as needed., OTC zyrtec., Push fluids., Take medications as prescribed., RTC as needed, To ER if symptoms persist or worsen., Infection precautions discussed, no school/work until fever free for 24 hours, Rest.Visit LtshVwdhdhliczfn0454-37-66NIKlv no improvement.: Bed rest.: Increase PO fluids.: continue OTC meds.: 4215-79-67Zmmo medications as prescribed.: Follow up as scheduled: to dicuss lrnd1604-65-88Hacp fluids.: Take medications as prescribed.: Will call patient with results.: of urine culture, if abx change is warrantedRTC 1 week: rtc1-2 wk for labs to include a1c due to recent glucosuria and to discuss routine screeningsDeclines flu shot.: [id number] flu shot.: RTC as needed: Healthy diet, regular exercise, and weight lossdiscussed.: low CHO diet advised/ discussedWill call patient with results.: of colonoscopy once records are received to determine when next is [id number] tylenol/motrin to keep fevers <100.: OTC cough med as needed.: OTC zyrtec.: Push fluids.: Take medications as prescribed.: RTC as needed: To ER if symptoms persist or worsen.: Rest.: 5316-43-73Xexoakwff tylenol/motrin to keep fevers <100.: OTC cough med as needed.: OTC zyrtec.: Push fluids.: Take medications as prescribed.: cont current medsRTC as needed: To ER if symptoms persist or worsen.: Infection precautions discussed: to include frequent handwashingno school/work until fever free for 24 hours: note provided if neededRest.: Patient was given education Blood Sugar, Cipro 250 mg tablet, Blood Sugar, Urinary Tract Infections, obesity, Fever, CoughDatePatient Tvvuivfgq0321-99-52Mfdke Sugar (Patient given patient education material in encounter)https://medlineplus.gov/bloodsugar.html?utm_medium=service&utm_sou dtj=htdqenloqxkz5316-14-40Gxjuu 250 mg tablet (Patient given patient education material in encounter)9321-36-69Lxwsm Sugar (Patient given patient education material in encounter)https://medlineplus.gov/bloodsugar.h tml?utm_source=mplusconnect&utm_medium=jxsosln0016-28-93Zxynxky Tract Infections (Patient given patient education material in encounter)https://medlineplus.gov/urinarytractinfections.html?utm_medium =service&utm_source=ufsgomfeafzw1920-80-77fkkfwvy (Patient given patient education material in encounter)4060-92-44Eqwkv (Patient given patient education material in encounter)https://medlineplus.go v/fever.html?utm_source=mplusconnect&utm_medium=tburnyc6557-33-32Ksomm (Patient given patient education material in encounter)https://medlineplus.gov/cough.html?utm_source=mplusconnect&utm_med ium=servicePatient was given instructions RTC if no improvement., Bed rest., Increase PO fluids., continue OTC meds., Take medications as prescribed., Follow up as scheduled, Push fluids., Take medications as prescribed., Will call patient with results., RTC 1 week, Declines flu shot., Declines flu shot., RTC asneeded, Healthy diet, regular exercise, and weight loss discussed., Will call patient with results.,Alternate tylenol/motrin to keep fevers <100., OTC cough med as needed., OTC zyrtec., Push fluids., Take medications as prescribed., RTC as needed, To ER if symptoms persist or worsen., Infection pre cautions discussed, no school/work until fever free for 24 hours, Rest.Visit ToqfWwfxigbnvged0115-48-05AVW if no improvement.: Bed rest.: Increase PO fluids.: continue OTC meds.: 2749-65-03Jsfp medications as prescribed.: Follow up as scheduled: to dicuss hqnj8298-57-31Vltm fluids.: Take medications as prescribed.: Will call patient with results.: of urine culture, if abx change is warrantedRTC 1 week: rtc 1-2 wk for labs to include a1c due to recent glucosuria and to discuss routine screeningsDeclines flu shot.: 0661-05-32Qjxtilui flu shot.: RTC as needed: Healthy diet, regular exercise, and weight loss discussed.: low CHO diet advised/ discussedWill call patient with results.: of colonoscopy once records are received to determine when next is yed4772-05-81Oshzdqiyk tylenol/motrin to keep fevers<100.: OTC cough med as needed.: OTC zyrtec.: Push fluids.: Take medications as prescribed.: contcurrent medsRTC as needed: To ER if symptoms persist or worsen.: Infection precautions discussed: toinclude frequent handwashingno school/work until fever free for 24 hours: note provided if neededRest.: Patient was given education Blood Sugar, Cipro 250 mg tablet, Blood Sugar, Urinary Tract Infections, obesity, FeverDatePatient Gnhgdkfng0199-36-42Kzddw Sugar (Patient given patient education material in encounter)https://medlineplus.gov/bloodsugar.html?utm_medium=service&utm_sou fnw=myutseuplzpy1920-14-41Jzpfu 250 mg tablet (Patient given patient education material in encounter)4657-96-70Yidye Sugar (Patient given patient education material in encounter)https://medlineplus.gov/bloodsugar.html?u tm_source=mplusconnect&utm_medium=lqagzui6092-76-08Nrmjqhb Tract Infections (Patient given patient education material in encounter)https://medlineplus.gov/urinarytractinfections.html?utm_medium=serv ice&utm_source=ffbmpetfzdin1407-49-14oolnjuj (Patient given patient education material in encounter)6923-83-58Bocnv (Patient given patient education material in encounter)https://medlineplus.gov/fev er.html?utm_source=mplusconnect&utm_medium=servicePatient was given instructions RTC if no improvement., Bed rest., Increase PO fluids., continue OTC meds., Take medications as prescribed., Follow up as scheduled, Push fluids., Take medications as prescribed., Will call patient with results., RTC 1 week, Declines flu shot., Declines flu shot., RTC asneeded, Healthy diet, regular exercise, and weight loss discussed., Will call patient with results.Vi sit DytbKbgjrrzfrmpa0274-77-38DCB if no improvement.: Bed rest.: Increase PO fluids.: continue OTC meds.: 5730-81-11Jemx medications as prescribed.: Follow up as scheduled: to dicuss ttmh0883-47-25Cyoafwwtwv.: Take medications as prescribed.: Will call patient with results.: of urine culture, if abx change is warrantedRTC 1 week: rtc 1-2 wk for labs to include a1c due to recent glucosuria and to discuss routine screeningsDeclines flu shot.: 9488-89-22Zmswuotb flu shot.: RTC as needed: Healthy diet,regular exercise, and weight loss discussed.: low CHO diet advised/ discussedWill call patient with r esults.: of colonoscopy once records are received to determine when next is due Patient was given education Blood Sugar, Cipro 250 mg tablet, Blood Sugar, Urinary Tract Infections, obesityDatePatient Tqhwshmvx6577-65-57Httsf Sugar (Patient given patient education material in encounter)https://medlinepl us.gov/bloodsugar.html?utm_medium=service&utm_source=gqlftjijvcnr8200-13-93E ipro 250 mg tablet (Patient given patient education material in encounter)3839-76-88Taeqr Sugar (Patient given patient education material in encounter)https://medlineplus.gov/bloodsugar.html?utm_source=mplusconnect&ut m_medium=ookeqdv6160-04-34Cxxdqol Tract Infections (Patient given patient education material in encount er)https://medlineplus.gov/urinarytractinfections.html?utm_medium=service&ut m_source=ikzihabyptbo9695-86-35bjpemrs (Patient given patient education material in encounter)Patient was given instructions RTC if no improvement., Bed rest., Increase PO fluids., continue OTC meds., Take medications as prescribed., Follow up as scheduled, Push fluids., Take medications as prescribed., Will call patient with results., RTC 1 week, Declines flu shot.Visit OndxOzyttvvyybhu6580-55-58QNW if no improvement.: Bed rest.: Increase PO fluids.: continue OTC meds.: 5980-85-16Dtcu medications as prescribed.: Follow up as scheduled: to dicuss wcqh5061-18-34Qnqx fluids.: Take medications as prescribed.: Will call patient with results.: of urine culture, if abx change is warrantedRTC 1 week: rtc 1-2 wk for labs to include a1c due to recent glucosuria and to discuss routine screeningsDeclines flu shot.: Patient was given education Blood Sugar, Cipro 250 mg tablet, Blood Sugar, Urinary Tract InfectionsDatePatient Itmsjavvg0478-29-13Smaew Sugar (Patient given patient education material in encounter)https://medlineplus.gov/bloodsugar.html?utm_medium=service&utm_sou iju=rnpnykhcsxdk6406-64-85Iyvbc 250 mg tablet (Patient given patient education material in encounter)3001-74-34Uotmg Sugar (Patient given patient education material in encounter)https://medlineplus.gov/bloodsugar.html?utm_s ource=mplusconnect&utm_medium=sdgdbiq6672-18-38Gaczseg Tract Infections (Patient given patient education material in encounter)https://medlineplus.gov/urinarytractinfections.html?utm_medium=service &utm_source=mplusconnectPatient was given instructions RTC if no improvement., Bed rest., Increase PO fluids., continue OTC meds., Take medications as prescribed., Follow up as scheduled Visit Date Instructions 2017-12-24 RTCif no improvement.: Bed rest.: Increase PO fluids.: continue OTC meds.: 2018-01-31 Take medications as prescribed.: Follow up as scheduled: to dicuss labs Patient was given education Blood Sugar, Zbksf933 mg tablet, Blood Sugar Date Patient Education 2017-12-24 Blood Sugar (Patient given patient educa tion material in encounter) https://medlineplus.gov/bloodsugar.html?utm_medium=service&utm_source =mplusconnect 2018-01-31 Cipro 250 mg tablet (Patient given patient education material in encounter)2018-03-27 Blood Sugar (Patient given patient education material in encounter) https://medlineplus.go v/bloodsugar.html?utm_source=mplusconnect&utm_medium=servicePatient was given instructions RTC if no improvement., Bed rest., Increase PO fluids., continue OTC meds., Take medications as prescribed., Follow up as scheduled Visit Date Instructions 2017-12-24 RTCif no improvement.: Bed rest.: Increase PO fluids.: continue OTC meds.: 2018-01-31 Take medications as prescribed.: Follow up as scheduled: to dicuss labs Patient was given education Blood Sugar, Cipro 250 mg tablet Date Patient Education 2017-12-24 Blood Sugar (Patient given patient education material in encounter) https://medlineplus.gov/bloodsugar.html?utm_medium=service&utm_source=mplusc onnect 2018-01-31 Cipro 250 mg tablet (Patient given patient education material in encounter)Patient was given instructions RTC if no improvement., Bed rest., Increase PO fluids., continue OTC meds. Visit Date Instructions 2017-12-24 RTC if no improvement.: Bed rest.: Increase PO fluids.: continue OTC meds.: Patient was given education Blood Sugar Date Patient Education 2017-12-24 Blood Sugar (Patient given patient education material in encounter) https://medlineplus.gov/bloodsugar.html?utm_m edium=service&utm_source=mplusconnect
== END ==
LOC: OD 09:59
PROVIDERS: ATTEND Advanced Practice Midwife
DX: R00.1 Bradycardia, unspecified (principal)
CPT/HCPCS: 93005; 93010

== ENCOUNTER → 2020-01-01 | Outpatient (CLI) | payer BC ==
--- NOTE | 2020-01-01 11:18 | WOMENS IMAGING REPORT ---
EXAM DESCRIPTION: LEFT SCREENING MAMMO W/CAD IMAGES COMPLETED DATE/TIME: 01/01/2020 10:38 am REASON FOR STUDY: Z12.31 ENCOUNTER FOR SCREENING MAMMOGRAM FOR MALIGNANT NEOPLASM OF BREAST Z12.31 ENCNTR SCREEN MAMMOGRAM FOR MALIGNANT NEOPLASM OF FISH COMPARISON: Priors back to 2013 EXAM PARAMETERS: Standard craniocaudal and mediolateral oblique views of the breast recorded using d igital acquisition. Read with the assistance of CAD. .FORMERLY [facility] - [employer] Version 9.2 LIMITATIONS: None. FINDINGS: BREAST LATERALITY: left No suspicious masses, suspicious calcifications or architectural distortion. No areas of concern. IMPRESSION: NORMAL MAMMOGRAM. BIRADS 1. BREAST DENSITY: b. There are scattered areas of fibroglandular density. BIRAD: ASSESSMENT: 1 NEGATIVE RECOMMENDATION: RECOMMENDATION: ROUTINE SCREENING. COMMENT: The patient has been notified of the results by letter per SA requirements. Additional no tification policies are in place for contacting patient with suspicious or incomplete findings. Quality ID #[id number]: [employer] recommends an annual screening mammogram for women aged 40 years or over. This facility utilizes a reminder system to ensure that all patients receive reminder letters, and/or direct phone calls for appointments. This includes reminders for routine scr eening mammograms, diagnostic mammograms, or other Breast Imaging Interventions when appropriate. Th is patient will be placed in the appropriate reminder system. TECHNICAL DOCUMENTATION: FINDING NUMBER: (1) ASSESSMENT: (1) JOB ID: [id number] 2010 [employer]- All Rights Reserved Reading location - IP/workstation name: [email or web address]
== END ==
LOC: WI 09:09
PROVIDERS: ATTEND Advanced Practice Midwife
DX: Z12.31 Encounter for screening mammogram for malignant neoplasm of breast (principal)